=== PATIENT | female | born 1995 | race Caucasian/White ===

== ENCOUNTER 2023-03-20 14:42 | Emergency (ER) | payer SELFPAY ==
[2023-03-20 14:44] VITALS: BP 150/80; PULSE 100; RESP 16; TEMP 36.6; O2SAT 100
[2023-03-20 16:53] VITALS: BP 147/80; PULSE 81; RESP 18; O2SAT 100
--- NOTE | 2023-03-20 17:11 | ED.GENADULT ---
HPI - General Adult General Chief complaint: Skin/Abscess/Foreign Body Stated complaint: spider bite L leg Time Seen by Provider: 03/20/23 16:51 Source: patient Mode of arrival: ambulatory Limitations: no limitations History of Present Illness HPI narrative: This is a 28-year-old female who presents to the ED with chief complaint of left inner thigh pain and redness ongoing for the past 3 days. Patient states that she thinks she was bitten by spider. She felt the initial bite and saw a spider fall out of her shorts at onset. She states it was small and brown. She reports that the thigh has had some spreading redness since the bite and increasing pain. Denies fevers, chills, nausea, vomiting, shortness of breath, cough. Related Data Allergies Allergy/AdvReac Type Severity Reaction Status Date / Time No Known Allergies Allergy Verified 03/20/23 16:58 Exam Narrative: GENERAL: Well-appearing, well-nourished, and in no acute distress. HEAD: Normocephalic, atraumatic. EYES: PERRLA and EOMI. ENT: Nares clear, no rhinorrhea or epistaxis. Mucous membranes moist. Oropharynx without tonsillar hypertrophy exudate or other lesions. NECK: Supple. No adenopathy or masses. CHEST: No respiratory distress. Clear to auscultation. No wheezes rales or rhonchi HEART: Regular rate and rhythm. No murmur heard. Normal peripheral pulses. ABDOMEN: Soft, nontender, nondistended, normal active bowel sounds. MSK: Normal range of motion. No edema. SKIN: There is a 7 x 7 cm area of erythema to the left medial thigh. There is a central 2 cm x 2 cm area of ecchymosis. There is no necrotic appearing skin. Mild tenderness to palpation throughout the area of redness. No streaking further up the leg. NEURO: Alert and oriented x3. No focal deficits. PSYCH: Normal mood and affect. Course Vital Signs Vital signs: Vital Signs Temperature 97.8 F 03/20/23 14:44 Pulse Rate 100 03/20/23 14:44 Respiratory Rate 16 03/20/23 14:44 Blood Pressure 150/80 H 03/20/23 14:44 Pulse Oximetry 100 03/20/23 14:44 Oxygen Delivery Room Air 03/20/23 14:44 Temperature 97.8 F 03/20/23 14:44 Pulse Rate 81 03/20/23 16:53 Respiratory Rate 18 03/20/23 16:53 Blood Pressure 147/80 H 03/20/23 16:53 Pulse Oximetry 100 03/20/23 16:53 Oxygen Delivery Room Air 03/20/23 16:53 Medical Decision Making MDM Narrative Medical decision making narrative: This is a 28-year-old female who presents to the ED with chief complaint of possible skin infection after a spider bite occurring 3 days ago. Vitals are normal. Afebrile. Exam does reveal an erythematous area of skin with central bruising. Skin appears slightly cellulitic surrounding the central ecchymosis. No necrosis or identifiable abscess noted. Antibiotic Keflex prescribed to cover for cellulitis. Tdap updated today. She is overall well-appearing and will not need further work-up at this time. She is stable for discharge. Strict return precautions were given and supportive measures for home discussed. She is understanding and agreeable with the plan for discharge and follow-up with her PCP. Vital Signs Vital Signs: Vital Signs Temperature 97.8 F 03/20/23 14:44 Pulse Rate 100 03/20/23 14:44 Respiratory Rate 16 03/20/23 14:44 Blood Pressure 150/80 H 03/20/23 14:44 Pulse Oximetry 100 03/20/23 14:44 Oxygen Delivery Room Air 03/20/23 14:44 Temperature 97.8 F 03/20/23 14:44 Pulse Rate 81 03/20/23 16:53 Respiratory Rate 18 03/20/23 16:53 Blood Pressure 147/80 H 03/20/23 16:53 Pulse Oximetry 100 03/20/23 16:53 Oxygen Delivery Room Air 03/20/23 16:53 Discharge Plan Discharge Clinical Impression: Cellulitis Patient Disposition: Home, Self-Care Condition: Stable Instructions: Antibiotic Form, Brown Recluse Spider Bite (ED) Additional Instructions: Your symptoms are consistent with spider bite and possible skin infection.
[2023-03-20] MEDS: TETANUS,DIPHTHERIA,AC PERTUSSIS ADULT (0.5 ML) BOOSTRIX IM (17:22)
== END 2023-03-20 17:29 | disposition home or self-care (01) ==
PROVIDERS: Emergency Provider Physician Assistant
DX: L03.116 Cellulitis of left lower limb (principal); Z23 Encounter for immunization
CPT/HCPCS: 90471; 90715; 99283